=== PATIENT | male | born 1970 | race Hispanic/Latino ===

== ENCOUNTER 2018-12-20 17:52 | Observation (INO) | payer MEDICARE ==
--- NOTE | 2018-12-20 18:01 | Emergency Department Report ---
Blank Doc - Documentation Documentation: This is a 47-year-old male that presents with chest pain and SOB. HX of HTN. Denies headache. Denies any other complaints or symptoms. This initial assessment/diagnostic orders/clinical plan/treatment(s) is/are subject to change based on patient's health status, clinical progression and re- assessment by fellow clinical providers in the ED. Further treatment and workup at subsequent clinical providers discretion. Patient/guardians urged not to elope from the ED as their condition may be serious if not clinically assessed and managed. Initial orders include: 1- Patient sent to MAIN ED for further evaluation and treatment 2- labs 3- CXR 4- EKG
[2018-12-20 18:18] LABS: Basophils # (Auto) 0.1 K/mm3 (0.0-0.1); Basophils % (Auto) 0.7 % (0.0-1.8); Eosinophils # (Auto) 0.1 K/mm3 (0.0-0.4); Eosinophils % (Auto) 1.6 % (0.0-4.3); Lymphocytes # (Auto) 1.5 K/mm3 (1.2-5.4); Lymphocytes % (Auto) 16.3 % (13.4-35.0); Mean Corpuscular HGB Conc 36 % (32-34); Mean Corpuscular Volume 80 fl (84-94); Monocytes # (Auto) 0.6 K/mm3 (0.0-0.8); Monocytes % (Auto) 6.9 % (0.0-7.3); Platelet Count 464 K/mm3 (140-440); Red Blood Count 5.26 M/mm3 (3.65-5.03); Red Cell Distribution Width 15.2 % (13.2-15.2)
[2018-12-20] MEDS ORDERED: ASPIRIN PO ONE (18:30)
[2018-12-20 18:34] LABS: Hemoglobin 15.2 gm/dl (11.8-15.2)
[2018-12-20 18:35] LABS: Hematocrit 42.3 % (35.5-45.6)
[2018-12-20 18:36] LABS: Partial Thromboplastin Time 29.4 Sec. (24.2-36.6)
[2018-12-20 18:44] LABS: BUN/Creatinine Ratio 11; Blood Urea Nitrogen 10 mg/dL (9-20); Hemolysis Index 27
[2018-12-20] MEDS: NITROSTAT SL PRN ×2 (18:50→19:34)
--- NOTE | 2018-12-20 19:29 | Emergency Department Report ---
ED Chest Pain HPI - General Chief Complaint: Chest Pain Stated Complaint: SOB/CHEST PAIN Time Seen by Provider: 12/20/18 17:59 Source: patient Mode of arrival: Ambulatory Limitations: No Limitations - History of Present Illness Initial Comments: 47-year-old male presents to ED with chest pain radiating down into the left arm for the last 4 hours. Onset of chest pain at rest. Associated shortness of breath. Denies nausea or diaphoresis. Patient states pain is sharp and has a pleuritic component as well. Noncompliant with BP meds. PCP: none MD Complaint: chest pain -: hour(s) (4) Onset: during rest Pain Location: left chest Pain Radiation: back Severity scale (0 -10): 6 Quality: sharp Consistency: constant Improves With: nothing Worsens With: nothing re: dyspnea. denies: nausea, vomting, diaphoresis Treatments Prior to Arrival: none - Related Data Home Medications Medication Instructions Recorded Confirmed Last Taken Insulin Detemir [Levemir VIAL] 24 units SUB-Q QHS 01/31/18 01/31/18 Unknown Previous Rx's Medication Instructions Recorded Last Taken Type Amoxicillin/K Clav Tab [Augmentin 1 each PO Q12HR #22 tablet 02/03/18 Unknown Rx 875MG TAB] Atorvastatin Calcium [Lipitor] 40 mg PO QPM #30 tablet 02/03/18 Unknown Rx DOXYCYCLINE Hyclate [Vibramycin 100 mg PO BID #22 capsule 02/03/18 Unknown Rx CAP] Insulin Glargine [Lantus VIAL] 30 units SUB-Q QHS 30 Days units 02/03/18 Unknown Rx Insulin Regular, Human [HumuLIN R] 12 units SUB-Q AC 30 Days units 02/03/18 Unknown Rx Losartan [Cozaar] 100 mg PO QDAY #30 tablet 02/03/18 Unknown Rx amLODIPine [Norvasc] 10 mg PO QDAY #30 tablet 02/03/18 Unknown Rx oxyCODONE /ACETAMINOPHEN [Percocet 2 tab PO Q6H PRN #10 tablet 02/03/18 Unknown Rx 5/325 mg] Allergies Allergy/AdvReac Type Severity Reaction Status Date / Time tea Allergy Swelling Uncoded 02/02/18 14:20 Heart Score - HEART Score History: Slightly suspicious EKG: Non-specific Age: 45-65 Risk factors: 1-2 risk factors Troponin: < normal limit HEART Score: 3 ED Review of Systems ROS: Stated complaint: SOB/CHEST PAIN Other details as noted in HPI Comment: All other systems reviewed and negative Respiratory: shortness of breath Cardiovascular: chest pain Gastrointestinal: denies: nausea, vomiting ED Past Medical Hx - Past Medical History Previous Medical History?: Yes Hx Hypertension: Yes Hx CVA: Yes Hx Diabetes: Yes (since 2006) - Surgical History Past Surgical History?: Yes Additional Surgical History: 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 - Social History Smoking Status: Never Smoker Substance Use Type: None - Medications Home Medications: Home Medications Medication Instructions Recorded Confirmed Last Taken Type Insulin Detemir [Levemir VIAL] 24 units SUB-Q QHS 18 01/31/18 Unknown History Amoxicillin/K Clav Tab [Augmentin 1 each PO Q12HR #22 tablet 02/03/18 Unknown Rx 875MG TAB] Atorvastatin Calcium [Lipitor] 40 mg PO QPM #30 tablet 02/03/18 Unknown Rx DOXYCYCLINE Hyclate [Vibramycin 100 mg PO BID #22 capsule 02/03/18 Unknown Rx CAP] Insulin Glargine [Lantus VIAL] 30 units SUB-Q QHS 30 Days units 02/03/18 Unknown Rx Insulin Regular, Human [HumuLIN R] 12 units SUB-Q AC 30 Days units 02/03/18 Unknown Rx Losartan [Cozaar] 100 mg PO QDAY #30 tablet 02/03/18 Unknown Rx amLODIPine [Norvasc] 10 mg PO QDAY #30 tablet 02/03/18 Unknown Rx oxyCODONE /ACETAMINOPHEN [Percocet 2 tab PO Q6H PRN #10 tablet 02/03/18 Unknown Rx 5/325 mg] ED Physical Exam - General Limitations: No Limitations General appearance: alert, in no apparent distress - Head Head exam: Present: atraumatic, normocephalic - Eye Eye exam: Present: normal appearance - ENT ENT exam: Present: mucous membranes moist - Neck Neck exam: Present: normal inspection - Respiratory Respiratory exam: Present: normal lung sounds bilaterally. Absent: respiratory distress - Cardiovascular Cardiovascular Exam: Present: normal rhythm, tachycardia - GI/Abdominal GI/Abdominal exam: Present: soft. Absent: distended, tenderness - Extremities Exam Extremities exam: Absent: pedal edema, calf tenderness - Neurological Exam Neurological exam: Present: alert, oriented X3, CN II-XII intact. Absent: motor sensory deficit - Psychiatric Psychiatric exam: Present: normal affect, normal mood - Skin Skin exam: Present: warm, dry, intact, normal color. Absent: rash ED Course Vital Signs 12/20/18 12/20/18 12/20/18 17:59 18:30 18:34 Temperature 97.9 F 98.1 F Pulse Rate 107 H 97 H Respiratory 18 22 Rate Blood Pressure 210/126 Blood Pressure 175/118 [Right] O2 Sat by Pulse 99 95 96 Oximetry 12/20/18 12/20/18 12/20/18 18:35 18:45 18:50 Temperature Pulse Rate 98 H 108 H Respiratory 22 18 Rate Blood Pressure 175/118 Blood Pressure [Right] O2 Sat by Pulse 96 96 Oximetry 12/20/18 12/20/18 12/20/18 19:01 19:15 19:31 Temperature Pulse Rate 100 H 106 H 102 H Respiratory 19 29 H 16 Rate Blood Pressure 153/107 153/107 164/111 Blood Pressure [Right] O2 Sat by Pulse 95 96 94 Oximetry 12/20/18 12/20/18 12/20/18 19:34 19:45 20:19 Temperature Pulse Rate 98 H 105 H 94 H Respiratory 20 22 Rate Blood Pressure 164/111 164/111 161/100 Blood Pressure [Right] O2 Sat by Pulse 96 97 Oximetry 12/20/18 12/20/18 12/20/18 20:31 20:45 21:01 Temperature Pulse Rate 97 H 98 H 96 H Respiratory 23 21 20 Rate Blood Pressure 182/104 182/104 149/94 Blood Pressure [Right] O2 Sat by Pulse 97 96 96 Oximetry 12/20/18 12/20/18 12/20/18 21:15 21:31 21:45 Temperature Pulse Rate 95 H 94 H 93 H Respiratory 20 19 19 Rate Blood Pressure 149/94 182/106 182/104 Blood Pressure [Right] O2 Sat by Pulse 97 97 97 Oximetry 12/20/18 12/20/18 12/20/18 22:01 22:15 22:31 Temperature Pulse Rate 82 94 H 106 H Respiratory 17 14 25 H Rate Blood Pressure 180/113 180/113 172/109 Blood Pressure [Right] O2 Sat by Pulse 98 97 95 Oximetry 05/15/19 05/15/19 05/15/19 22:45 22:52 23:05 Temperature Pulse Rate 100 H 97 H 108 H Respiratory 18 14 Rate Blood Pressure 174/105 174/105 149/85 Blood Pressure [Right] O2 Sat by Pulse 95 96 Oximetry 12/20/18 12/20/18 12/20/18 23:09 23:15 23:31 Temperature Pulse Rate 99 H 100 H Respiratory 16 18 21 Rate Blood Pressure 172/97 172/97 Blood Pressure [Right] O2 Sat by Pulse 95 96 Oximetry 12/20/18 12/21/18 12/21/18 23:45 00:01 00:15 Temperature Pulse Rate 102 H 99 H 106 H Respiratory 15 18 12 Rate Blood Pressure 145/102 145/102 209/114 Blood Pressure [Right] O2 Sat by Pulse 97 94 96 Oximetry 12/21/18 00:33 Temperature 97.3 F L Pulse Rate Respiratory Rate Blood Pressure 174/113 Blood Pressure [Right] O2 Sat by Pulse Oximetry ED Medical Decision Making - Lab Data Result diagrams: 12/20/18 18:02 12/20/18 18:02 - Radiology Data Radiology results: report reviewed, image reviewed - Differential Diagnosis ACS, pulm edema, PE Critical care attestation.: If time is entered above; I have spent that time in minutes in the direct care of this critically ill patient, excluding procedure time. ED Disposition Clinical Impression: Chest pain Disposition: - OP ADMIT IP TO THIS HOSP Is pt being admited?: Yes Condition: Stable
--- NOTE | 2018-12-20 20:31 | Cat Scan Report ---
PROCEDURE: CT ANGIO CHEST TECHNIQUE: Computerized tomographic angiography of the chest was performed after the IV injection of iodinated nonionic contrast including image processing. The image data was postprocessed using 2-di mensional multiplanar reformatted (MPR) and 3-dimensional (MIP and/or volume rendered) techniques. Au tomated exposure control, adjustment of mA and/or kV according to patient size, or iterative reconstr uction dose optimization techniques were utilized. CT DOSE LENGTH PRODUCT: 1021.8 mGycm HISTORY: chest pain COMPARISONS: None . FINDINGS: Heart and pericardium: Normal. Thoracic aorta: Normal. Pulmonary vasculature: Normal. Lymph nodes: No enlarged thoracic lymph nodes. Lungs: Normal. Pleural space: No effusion, thickening, or pneumothorax. Musculoskeletal structures: No significant abnormality. Upper abdominal structures: No significant abnormality. IMPRESSION: Normal Examination . This document is electronically signed by Hunter Colmenares MD., Dec 20 2018 08:29:49 PM ET
--- NOTE | 2018-12-20 21:20 | XRay Report ---
PROCEDURE: Chest. TECHNIQUE: Portable AP view. HISTORY: Chest pain. COMPARISONS: Chest 01/31/2018. FINDINGS: The heart and mediastinum appear normal. The lungs are clear and well expanded. There are no pleural effusions. The soft tissues and regional skeleton are unremarkable. IMPRESSION: Negative portable chest. This document is electronically signed by Isaias Masters MD., Dec 20 2018 09:18:45 PM ET
[2018-12-20] MEDS ORDERED: APRESOLINE IV PRN (22:34)
[2018-12-20] MEDS ORDERED: TYLENOL PO PRN (22:35)
[2018-12-20] MEDS ORDERED: APRESOLINE IV ONE (22:35)
[2018-12-20] MEDS ORDERED: ZOFRAN IV PRN (22:35)
[2018-12-20] MEDS ORDERED: SODIUM CHLORIDE FLUSH SYRINGE 10 ML IV PRN (22:35)
[2018-12-20] MEDS ORDERED: D50W (25GM) Syringe IV PRN (22:35)
--- NOTE | 2018-12-20 22:35 | History and Physical Report ---
History of Present Illness Date of examination: 12/20/18 History of present illness: 47-year-old man with a history of hypertension, diabetes comes emergency room with complaints of chest pain located in the left chest which he describes as dull, constant pain, intensity 5/10, no radiation, cannot identify exacerbating factor. He nitroglycerin with improvement in his pain. Denies shortness of breath, nausea, no diaphoresis or palpitation. Has a wound on his foot for over 6 months which has not healed Review of systems Constitutional: no weight loss, chills, fever Ears, eyes, nose, mouth and throat: no nasal congestion, no nasal discharge, no sinus pressure, no vision change, no red eye. Neck: No neck pain or rigidity. Cardiovascular: no palpitations, +chest pain Respiratory: no cough, shortness of breath Gastrointestinal: no hematochezia, abdominal pain Genitourinary : no frequency , no hematuria Musculoskeletal: no joint swelling or muscle ache Integumentary: no rash, no pruritis Neurological: no parathesias, no focal weakness Endocrine: no cold or heat intolerance, no polyuria or polydipsia Hematologic/Lymphatic: no easy bruising, no easy bleeding, no gland swelling Allergic/Immunologic: no urticaria, no angioedema. PAST MEDICAL HISTORY: hypertension, diabetes PAST SURGICAL HISTORY: Transmetatarsal on the left foot, second toe amputated on the right foot SOCIAL HISTORY: Denies alcohol, drugs, tobacco FAMILY HISTORY: Hypertension Medications and Allergies Allergies Allergy/AdvReac Type Severity Reaction Status Date / Time tea Allergy Swelling Uncoded 02/02/18 14:20 Home Medications Medication Instructions Recorded Confirmed Last Taken Type Insulin Detemir [Levemir VIAL] 24 units SUB-Q QHS 01/31/18 01/31/18 Unknown History Amoxicillin/K Clav Tab [Augmentin 1 each PO Q12HR #22 tablet 02/03/18 Unknown Rx 875MG TAB] Atorvastatin Calcium [Lipitor] 40 mg PO QPM #30 tablet 02/03/18 Unknown Rx DOXYCYCLINE Hyclate [Vibramycin 100 mg PO BID #22 capsule 02/03/18 Unknown Rx CAP] Insulin Glargine [Lantus VIAL] 30 units SUB-Q QHS 30 Days units 02/03/18 Unknown Rx Insulin Regular, Human [HumuLIN R] 12 units SUB-Q AC 30 Days units 02/03/18 Unknown Rx Losartan [Cozaar] 100 mg PO QDAY #30 tablet 02/03/18 Unknown Rx amLODIPine [Norvasc] 10 mg PO QDAY #30 tablet 02/03/18 Unknown Rx oxyCODONE /ACETAMINOPHEN [Percocet 2 tab PO Q6H PRN #10 tablet 02/03/18 Unknown Rx 5/325 mg] Active Meds: Active Medications Hydralazine HCl (Apresoline) 5 mg IV Q6H PRN PRN Reason: Hypertension Hydralazine HCl (Apresoline) 10 mg IV ONCE ONE Stop: 12/20/18 22:36 Nitroglycerin (Nitrostat) 0.4 mg SL .Q5MIN PRN PRN Reason: Chest Pain Last Admin: 12/20/18 19:34 Dose: 0.4 mg Documented by: Exam - Physical Exam Narrative exam: General Apperance: The patient lying in bed, breathing comfortable HEENT: Normocephalic, atraumatic. Pupils equally round and reactive to light, EOMI, no sclericterus or JVD or thyromegaly or nodule. , no carotid bruit, mucous membranes moist, no exudate or erythema Heart: S1-S2, regular is rhythm Lungs: Clear to auscultation bilaterally, breathing comfortable Abdomen: Positive bowel sounds, soft, nontender, nondistended, no organomegaly Extremities: No edema cyanosis clubbing Skin: no rash, nodule, warm and dry Neuro: cranial nerves 2-12 intact, speech is fluent, motor/sensory intact - Constitutional Vitals: Temp Pulse Resp BP Pulse Ox 98.1 F 98 H 22 164/111 96 12/20/18 18:34 12/20/18 19:34 12/20/18 18:35 12/20/18 19:34 12/20/18 18:35 Results - Labs CBC & Chem 7: 12/20/18 18:02 12/20/18 18:02 Labs: Abnormal lab results 12/20/18 12/20/18 Range/Units 18:02 18:02 RBC 5.26 H (3.65-5.03) M/mm3 MCV 80 L (84-94) fl MCHC 36 H (32-34) % Plt Count 464 H (140-440) K/mm3 Seg Neutrophils % 74.5 H (40.0-70.0) % Sodium 135 L (137-145) mmol/L Chloride 93.4 L (98-107) mmol/L Glucose 341 H (75-100) mg/dL - Imaging and Cardiology EKG: image reviewed CT scan - chest: report reviewed Assessment and Plan Assessment Chest pain Hypertension, controlled Diabetes, uncontrolled Chronic left foot ulcer Plan Admit to medicine Cardiac enzymes, stress test Consult qound care Check fingersticks and initiate insulin sliding scale IV hydralazine, first dose now DVT prophylaxis
[2018-12-20] MEDS: MORPHINE IV PRN (23:09)
[2018-12-20 23:48] LABS: Creatine Kinase MB 2.5 ng/mL (0.0-4.0)
[2018-12-21] MEDS ORDERED: NORVASC PO ONE (02:36)
[2018-12-21] MEDS: MORPHINE IV PRN ×3 (03:00→13:13)
[2018-12-21] MEDS: HumaLOG SUB-Q SCH ×2 (08:52→13:13)
[2018-12-21 08:55] LABS: Basophils # (Auto) 0.1 K/mm3 (0.0-0.1); Basophils % (Auto) 0.9 % (0.0-1.8); Eosinophils # (Auto) 0.2 K/mm3 (0.0-0.4); Eosinophils % (Auto) 2.5 % (0.0-4.3); Hematocrit 41.9 % (35.5-45.6); Hemoglobin 14.1 gm/dl (11.8-15.2); Lymphocytes # (Auto) 1.4 K/mm3 (1.2-5.4); Lymphocytes % (Auto) 21.2 % (13.4-35.0); Mean Corpuscular HGB Conc 34 % (32-34); Mean Corpuscular Volume 80 fl (84-94); Monocytes # (Auto) 0.6 K/mm3 (0.0-0.8); Monocytes % (Auto) 9.2 % (0.0-7.3); Platelet Count 416 K/mm3 (140-440); Red Blood Count 5.23 M/mm3 (3.65-5.03); Red Cell Distribution Width 15.1 % (13.2-15.2)
[2018-12-21 09:10] LABS: Creatine Kinase MB 2.7 ng/mL (0.0-4.0)
[2018-12-21 09:18] LABS: BUN/Creatinine Ratio 13; Blood Urea Nitrogen 10 mg/dL (9-20); Calcium 8.7 mg/dL (8.4-10.2); Hemolysis Index 3
[2018-12-21] MEDS ORDERED: LEXISCAN IV ONE (09:36)
[2018-12-21] MEDS ORDERED: SODIUM CHLORIDE FLUSH SYRINGE 10 ML IV SCH (10:00)
[2018-12-21] MEDS ORDERED: LOVENOX SUB-Q SCH ×2 (10:00)
--- NOTE | 2018-12-21 11:10 | Discharge Summary ---
Providers - Providers Date of Admission: 12/20/18 22:35 Date of discharge: 12/21/18 Attending physician: INEZ ERWIN 12/20/18 23:27 Consult to Wound/ET Nurse [CONS] Routine Reason For Exam: wound eval Hospitalization Reason for admission: cp Condition: Stable Hospital course: 47-year-old man with a history of hypertension, diabetes presented to the emergency room with complaints of chest pain located in the left chest which he describes as dull, constant pain, intensity 5/10, no radiation, cannot identify exacerbating factor. He Denied shortness of breath, nausea, no diaphoresis or palpitation. The patient was admitted with diagnosis of accelerated hypertension chest pain and underwent chest pain protocol. Cardiac isoenzymes were found to be negative. Patient underwent stress test and found to be negative will be discharged home. Etiology of chest pain is GERD. The patient's blood pressure was controlled on his home medications. Dedicated discharge time 32 minutes. Disposition: TO HOME OR SELFCARE Time spent for discharge: 32 min Core Measure Documentation - Palliative Care Palliative Care/ Comfort Measures: Not Applicable - Core Measures Any of the following diagnoses?: none Exam - Constitutional Vitals: Temp Pulse Resp BP Pulse Ox 98.1 F 101 H 18 136/87 94 12/21/18 07:31 12/21/18 07:31 12/21/18 07:31 12/21/18 07:31 12/21/18 07:31 General appearance: Present: no acute distress, well-nourished - EENT Eyes: Present: PERRL ENT: hearing intact, clear oral mucosa - Neck Neck: Present: supple, normal ROM - Respiratory Respiratory effort: normal Respiratory: bilateral: CTA - Cardiovascular Heart Sounds: Present: S1 & S2. Absent: rub, click - Extremities Extremities: pulses symmetrical, No edema Peripheral Pulses: within normal limits - Abdominal General gastrointestinal: Present: soft, non-tender, non-distended, normal bowel sounds Male genitourinary: Present: normal - Integumentary Integumentary: Present: clear, warm, dry - Musculoskeletal Musculoskeletal: gait normal, strength equal bilaterally - Psychiatric Psychiatric: appropriate mood/affect, intact judgment & insight - Neurologic Neurologic: CNII-XII intact, moves all extremities Plan Activity: no restrictions Weight Bearing Status: Full Weight Bearing Diet: diabetic Follow up with: [facility] [Other] - 3-5 Days Prescriptions: Losartan [Cozaar] 100 mg PO QDAY #30 tablet Insulin Regular, Human [HumuLIN R] 12 units SUB-Q AC 30 Days units Insulin Glargine [Lantus VIAL] 30 units SUB-Q QHS 30 Days units Insulin Detemir [Levemir VIAL] 24 units SUB-Q QHS 30 Days vial amLODIPine [Norvasc] 10 mg PO QDAY #30 tablet oxyCODONE /ACETAMINOPHEN [Percocet 5/325 mg] 2 tab PO Q6H PRN #10 tablet PRN Reason: Pain, Moderate (4-6) DOXYCYCLINE Hyclate [Vibramycin CAP] 100 mg PO BID #22 capsule
[2018-12-21 16:52] VITALS: BP 135/88
--- NOTE | 2018-12-21 20:50 | Treadmill Report ---
THALLIUM STRESS TEST LEFT VENTRICLE: Left ventricular chamber size is within normal spread. Perfusion study demonstrates a small fixed basal inferior defect of moderate intensity, worse on the resting study. No significant reversible defects identified. Gated analysis demonstrates well preserved left ventricular systolic function, ejection fraction 53%. CONCLUSION: Small fixed basal inferior defect of moderate intensity, possibly diaphragmatic attenuation artifact. Cannot exclude a small prior basal inferior infarct. There is no reversible ischemia demonstrated on this study. Clinical correlation is recommended. JOB# [id number] CA/NTS
== END 2018-12-21 17:10 | disposition home or self-care (01) ==
LOC: ED 17:52 → 4A 22:35
PROVIDERS: ADMIT Internal Medicine; ATTEND Hospitalist
DX: R07.89 Other chest pain (principal); E11.621 Type 2 diabetes mellitus with foot ulcer; I10 Essential (primary) hypertension; Z98.890 Other specified postprocedural states; Z82.49 Family history of ischemic heart disease and other diseases of the circulatory system; Z79.4 Long term (current) use of insulin; Z79.899 Other long term (current) drug therapy; Z86.73 Personal history of transient ischemic attack (TIA), and cerebral infarction without residual deficits
CPT/HCPCS: 36415; 71045; 71275; 78452; 80048; 82550; 82553; 82962; 84484; 85025; 85610; 85730; 93005; 93010; 93017; 96372; 96374; 96375; 96376; 99284; A9502; G0378; J0360; J1650; J2270; J2785; Q9967; J1815

== ENCOUNTER 2019-03-09 07:46 | Inpatient (IN) | payer MEDICARE ==
[2019-03-09] MEDS ORDERED: ZOFRAN IV ONE (09:34)
[2019-03-09] MEDS ORDERED: SUBLIMAZE IV ONE (09:34)
[2019-03-09] MEDS ORDERED: MAXIPIME/NS 2 GM/100 ML 2 GM/100 ML BAG IV ONE (09:42)
[2019-03-09] MEDS ORDERED: VANCOMYCIN 2,000 MG in NACL 0.9% 500 ML 500 ML IV ONE (09:46)
[2019-03-09 09:47] LABS: Basophils # (Auto) 0.1 K/mm3 (0.0-0.1); Basophils % (Auto) 0.8 % (0.0-1.8); Eosinophils # (Auto) 0.2 K/mm3 (0.0-0.4); Eosinophils % (Auto) 1.7 % (0.0-4.3); Hematocrit 37.9 % (35.5-45.6); Hemoglobin 13.2 gm/dl (11.8-15.2); Lymphocytes # (Auto) 2.5 K/mm3 (1.2-5.4); Lymphocytes % (Auto) 25.4 % (13.4-35.0); Mean Corpuscular HGB Conc 35 % (32-34); Mean Corpuscular Volume 81 fl (84-94); Monocytes % (Auto) 10.6 % (0.0-7.3); Platelet Count 358 K/mm3 (140-440); Red Cell Distribution Width 15.9 % (13.2-15.2)
--- NOTE | 2019-03-09 10:02 | Emergency Department Report ---
HPI - General Chief Complaint: Extremity Problem,Nontraumatic Time Seen by Provider: 03/09/19 09:12 - HPI HPI: Room 4 The patient is a 48-year-old male presenting with a chief complaint of left lower extremity pain. The patient states for the past 2 days he's noticed left lower extremity pain, erythema and increased warmth. Patient denies any preced ing trauma. Patient denies history of fever at home. The patient gets his pain score 7-8/10. 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 - Family History Family history: no significant - Social History Smoking Status: Former Smoker (none since 1997) Substance Use Type: None (denies illicit drug use) - Medications Home Medications: Home Medications Medication Instructions Recorded Confirmed Last Taken Type Amoxicillin/K Clav Tab [Augmentin 1 each PO Q12HR #22 tablet 02/03/18 Unknown Rx 875MG TAB] Atorvastatin Calcium [Lipitor] 40 mg PO QPM #30 tablet 02/03/18 Unknown Rx DOXYCYCLINE Hyclate [Vibramycin 100 mg PO BID #22 capsule 12/21/18 Unknown Rx CAP] Insulin Detemir [Levemir VIAL] 24 units SUB-Q QHS 30 Days vial 12/21/18 Unknown Rx Insulin Glargine [Lantus VIAL] 30 units SUB-Q QHS 30 Days units 12/21/18 Unknown Rx Insulin Regular, Human [HumuLIN R] 12 units SUB-Q AC 30 Days units 12/21/18 Unknown Rx Losartan [Cozaar] 100 mg PO QDAY #30 tablet 12/21/18 Unknown Rx amLODIPine [Norvasc] 10 mg PO QDAY #30 tablet 12/21/18 Unknown Rx oxyCODONE /ACETAMINOPHEN [Percocet 2 tab PO Q6H PRN #10 tablet 12/21/18 Unknown Rx 5/325 mg] ED Review of Systems ROS: Stated complaint: L LEG PAIN Other details as noted in HPI Constitutional: denies: fever Eyes: denies: eye pain ENT: denies: throat pain Respiratory: no symptoms reported Cardiovascular: denies: chest pain Endocrine: no symptoms reported Gastrointestinal: denies: abdominal pain Genitourinary: denies: dysuria Musculoskeletal: myalgia Skin: rash, change in color Neurological: denies: headache Physical Exam - Physical Exam Vital Signs: Vital Signs 03/09/19 03/09/19 07:54 08:22 Temperature 98.4 F 98.6 F Pulse Rate 114 H 104 H Respiratory 20 17 Rate Blood Pressure 155/95 Blood Pressure 135/90 [Left] O2 Sat by Pulse 99 96 Oximetry Physical Exam: GENERAL: The patient is well-developed well-nourished male lying on stretcher using cellphone not appearing to be in acute distress. [] HEENT: Normocephalic. Atraumatic. Extraocular motions are intact. Patient has moist mucous membranes. NECK: Supple. Trachea midline CHEST/LUNGS: Clear to auscultation. There is no respiratory distress noted. HEART/CARDIOVASCULAR: Regular. There is no tachycardia. There is no gallop rub or murmur. ABDOMEN: Abdomen is soft, nontender. Patient has normal bowel sounds. There is no abdominal distention. SKIN: There is circumferential erythema and increased warmth around the left lower extremity chronic appearing ulcer to the sole of the left foot no evidence of active drainage seen. There is no diaphoresis. NEURO: The patient is awake, alert, and oriented. The patient is cooperative. The patient has normal speech MUSCULOSKELETAL: There is tenderness to palpation of the left calf ED Course Vital Signs 03/09/19 03/09/19 07:54 08:22 Temperature 98.4 F 98.6 F Pulse Rate 114 H 104 H Respiratory 20 17 Rate Blood Pressure 155/95 Blood Pressure 135/90 [Left] O2 Sat by Pulse 99 96 Oximetry ED Medical Decision Making - Lab Data Result diagrams: 03/09/19 09:28 03/09/19 09:28 Laboratory Tests 03/09/19 03/09/19 03/09/19 09:28 09:28 09:28 WBC 9.8 RBC 4.70 Hgb 13.2 Hct 37.9 MCV 81 L MCH 28 MCHC 35 H RDW 15.9 H Plt Count 358 Lymph % (Auto) 25.4 [place] % (Auto) 10.6 H Eos % (Auto) 1.7 Baso % (Auto) 0.8 Lymph # 2.5 [place] # 1.0 H Eos # 0.2 Baso # 0.1 Seg Neutrophils % 61.5 Seg Neutrophils # 6.0 ESR 56 Sodium 136 L Potassium 3.9 Chloride 97.1 L Carbon Dioxide 26 Anion Gap 17 BUN 28 H Creatinine 1.5 Estimated GFR 50 BUN/Creatinine Ratio 19 Glucose 270 H Lactic Acid 2.60 H* Calcium 9.3 C-Reactive Protein 4.60 H 03/09/19 10:20 WBC RBC Hgb Hct MCV MCH MCHC RDW Plt Count Lymph % (Auto) [place] % (Auto) Eos % (Auto) Baso % (Auto) Lymph # [place] # Eos # Baso # Seg Neutrophils % Seg Neutrophils # ESR Sodium Potassium Chloride Carbon Dioxide Anion Gap BUN Creatinine Estimated GFR BUN/Creatinine Ratio Glucose Lactic Acid 3.00 H* Calcium C-Reactive Protein - Radiology Data Radiology results: report reviewed (left lower extremity Doppler, left foot x- ray), image reviewed (left lower extremity Doppler, left foot x-ray) interpreted by me: Left foot x-ray-no acute fracture, no evidence of osteomyelitis [facility] [address] [place] [address] Vascular Lab Report Signed Patient: GIOVANA CAMPOS MR#: [id number] : 1970 Acct:[id number] Age/Sex: 48 / M ADM Date: 03/09/19 Loc: ED Attending Dr: Ordering Physician: ANIKA MORA MD Date of Service: 03/09/19 Procedure(s): VL venous duplex LE LT Accession Number(s): [id number] cc: ANIKA MORA MD DUPLEX DOPPLER LOWER EXTREMITY VEINS, LEFT INDICATION: Left lower extremity pain and redness for 3 days. TECHNIQUE: Duplex doppler imaging was performed through the veins of the left lower extremity using venous compression and other maneuvers. COMPARISON: No relevant prior imaging study available. FINDINGS: Left Common femoral vein: Negative. Left Superficial femoral vein: Negative. Left Popliteal vein: Negative. Left Calf veins: Negative. Additional findings: None.. IMPRESSION: No sonographic evidence for DVT in the left lower extremity. Signer Name: Javier Lugo Jr, MD Signed: 03/09/2019 10:16 AM Workstation Name: [id number] Transcribed By: ELIZ Dictated By: JAVIER LUGO JR, MD Electronically Authenticated By: JAVIER LUGO JR, MD Signed Date/Time: 03/09/19 1016 DD/ 1015 TD/TT: [facility] [address] [place] [address] XRay Report Signed Patient: GIOVANA CAMPOS MR#: [id number] : 1970 Acct:[id number] Age/Sex: 48 / M ADM Date: 03/09/19 Loc: ED Attending Dr: Ordering Physician: ANIKA MORA MD Date of Service: 03/09/19 Procedure(s): XR foot 3+V LT Accession Number(s): [id number] cc: ANIKA MORA MD Fluoro Time In Minutes: LEFT FOOT 3 VIEWS INDICATION / CLINICAL INFORMATION: Pain in left foot with warmth, redness and swelling. Open wound on left foot. History of diabetes. COMPARISON: None available. FINDINGS: BONES and JOINT(S): There has been prior amputation of the forefoot. No acute displaced fracture or dislocation is noted. Degenerative changes are present along the mid foot with an inferior calcaneal enthesophyte. No destructive bony changes are identified. SOFT TISSUES: There is a 2.8 cm when located along the plantar aspect of the foot near the dictation margin. Generalized edema is noted along the foot and ankle. No significant soft tissue gas is seen. ADDITIONAL FINDINGS: None. IMPRESSION: Left foot wound as above without radiographic evidence of osteomyelitis. Signer Name: Omkar Morocho MD Signed: 03/09/2019 11:01 AM Workstation Name: [id number] Transcribed By: MN Dictated By: Omkar Morocho MD Electronically Authenticated By: Omkar Morocho MD Signed Date/Time: 03/09/19 1101 DD/ 1059 TD/TT: - Differential Diagnosis cellulitis, DVT, venous insufficiency Critical care attestation.: If time is entered above; I have spent that time in minutes in the direct care of this critically ill patient, excluding procedure time. ED Disposition Clinical Impression: Left leg cellulitis, Left leg pain Disposition: OP ADMIT IP TO THIS HOSP Is pt being admited?: Yes Does the pt Need Aspirin: No Condition: Fair Referrals: JACLYN GONCALVES MD [Primary Care Provider] - 3-5 Days Time of Disposition: 11:16 (hospitalist paged (Dr Garnett))
[2019-03-09 10:06] LABS: C-Reactive Protein 4.6 mg/dL (0.00-1.30); Calcium 9.3 mg/dL (8.4-10.2)
--- NOTE | 2019-03-09 10:20 | Vascular Lab Report ---
DUPLEX DOPPLER LOWER EXTREMITY VEINS, LEFT INDICATION: Left lower extremity pain and redness for 3 days. TECHNIQUE: Duplex doppler imaging was performed through the veins of the left lower extremity using venous compression and other maneuvers. COMPARISON: No relevant prior imaging study available. FINDINGS: Left Common femoral vein: Negative. Left Superficial femoral vein: Negative. Left Popliteal vein: Negative. Left Calf veins: Negative. Additional findings: None.. IMPRESSION: No sonographic evidence for DVT in the left lower extremity. Signer Name: Javier Lugo Jr, MD Signed: 03/09/2019 10:16 AM Workstation Name: [id number]
[2019-03-09 10:36] LABS: Erythrocyte Sedimentation Rate 56 mm/Hr (0-20)
[2019-03-09] MEDS ORDERED: NACL 0.9% 1000 ML 1,000 ML IV ONE (10:52)
--- NOTE | 2019-03-09 11:05 | XRay Report ---
LEFT FOOT 3 VIEWS INDICATION / CLINICAL INFORMATION: Pain in left foot with warmth, redness and swelling. Open wound on left foot. History of diabetes. COMPARISON: None available. FINDINGS: BONES and JOINT(S): There has been prior amputation of the forefoot. No acute displaced fracture or d islocation is noted. Degenerative changes are present along the mid foot with an inferior calcaneal e nthesophyte. No destructive bony changes are identified. SOFT TISSUES: There is a 2.8 cm when located along the plantar aspect of the foot near the dictation margin. Generalized edema is noted along the foot and ankle. No significant soft tissue gas is seen. ADDITIONAL FINDINGS: None. IMPRESSION: Left foot wound as above without radiographic evidence of osteomyelitis. Signer Name: Omkar Morocho MD Signed: 03/09/2019 11:01 AM Workstation Name: [id number]
[2019-03-09] MEDS ORDERED: NACL 0.9% 1000 ML 1,000 ML ONE (12:21)
[2019-03-09] MEDS ORDERED: SODIUM CHLORIDE FLUSH SYRINGE 10 ML IV PRN ×2 (15:26→15:41)
[2019-03-09] MEDS ORDERED: PROVENTIL IH PRN (15:26)
[2019-03-09] MEDS ORDERED: TYLENOL PO PRN ×2 (15:26→15:41)
[2019-03-09] MEDS ORDERED: ZOFRAN IV PRN ×2 (15:26→15:41)
--- NOTE | 2019-03-09 15:26 | History and Physical Report ---
History of Present Illness Date of examination: 03/09/19 Date of admission: 03/09/19 11:18 Chief complaint: L lower extremity pain and redness History of present illness: 48-year-old male presenting with a chief complaint of left lower extremity pain.For the past 2 days he's noticed left lower extremity pain, erythema and increased warmth. Patient denies any preceding trauma. Patient denies history of fever at home. The patient gets his pain score 7-8/10. The patient states she's had a chronic wound to the sole of his left foot for approximately one year.Also he had TMA of L foot sec to Diabetic foot ulcer.Has perforating ulcer on the heel of Left foot anteriorly where TMA ends.2 cm x 2dht9ct depth.Erythma of Left lower extremity upto the knee. Past Medical History Previous Medical History?: Yes Hypertension CVA--no residulal weakness. 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 Family History Family history: no significant Social History Smoking Status: Former Smoker (none since 1997) Substance Use Type: None (denies illicit drug use) - Medications Home Medications: Home Medications Medication Instructions Recorded Confirmed Last Taken Type Amoxicillin/K Clav Tab [Augmentin 1 each PO Q12HR #22 tablet 02/03/18 Unknown Rx 875MG TAB] Atorvastatin Calcium [Lipitor] 40 mg PO QPM #30 tablet 02/03/18 Unknown Rx DOXYCYCLINE Hyclate [Vibramycin 100 mg PO BID #22 capsule 12/21/18 Unknown Rx CAP] Insulin Detemir [Levemir VIAL] 24 units SUB-Q QHS 30 Days vial 12/21/18 Unknown Rx Insulin Glargine [Lantus VIAL] 30 units SUB-Q QHS 30 Days units 12/21/18 Unknown Rx Insulin Regular, Human [HumuLIN R] 12 units SUB-Q AC 30 Days units 12/21/18 Unknown Rx Losartan [Cozaar] 100 mg PO QDAY #30 tablet 12/21/18 Unknown Rx amLODIPine [Norvasc] 10 mg PO QDAY #30 tablet 12/21/18 Unknown Rx oxyCODONE /ACETAMINOPHEN [Percocet 2 tab PO Q6H PRN #10 tablet 12/21/18 Unknown Rx 5/325 mg] Review of Systems ROS: Stated complaint: L LEG PAIN Other details as noted in HPI Constitutional: denies: fever Eyes: denies: eye pain ENT: denies: throat pain Respiratory: no symptoms reported Cardiovascular: denies: chest pain Endocrine: no symptoms reported Gastrointestinal: denies: abdominal pain Genitourinary: denies: dysuria Musculoskeletal: myalgia Skin: rash, change in color Neurological: denies: headache 14 point review of systems done.--otherwise negative Medications and Allergies Allergies Allergy/AdvReac Type Severity Reaction Status Date / Time tea Allergy Swelling Uncoded 02/02/18 14:20 Home Medications Medication Instructions Recorded Confirmed Last Taken Type Losartan [Cozaar] 100 mg PO QDAY #30 tablet 12/21/18 03/09/19 Unknown Rx amLODIPine [Norvasc] 10 mg PO QDAY #30 tablet 12/21/18 03/09/19 Unknown Rx Ibuprofen [Motrin Ib] 1 - 2 cap PO Q4-6H PRN 03/09/19 03/09/19 Unknown History Insulin Detemir [Levemir VIAL] 28 units SUB-Q QHS 03/09/19 03/09/19 Unknown History Insulin Regular, Human [Novolin R] 27 units SUB-Q AC 03/09/19 03/09/19 Unknown History Exam - Constitutional Vitals: Temp Pulse Resp BP Pulse Ox 98.7 F 96 H 20 127/84 95 03/09/19 13:24 03/09/19 13:24 03/09/19 13:24 03/09/19 13:24 03/09/19 13:24 General appearance: Present: no acute distress, well-nourished - EENT Eyes: Present: PERRL ENT: hearing intact, clear oral mucosa - Neck Neck: Present: supple, normal ROM - Respiratory Respiratory effort: normal Respiratory: bilateral: CTA - Cardiovascular Heart rate: 78 Rhythm: regular Heart Sounds: Present: S1 & S2. Absent: rub, click - Extremities Extremities: no ischemia, pulses intact, pulses symmetrical, No edema, abnormal (L foot perforating ulcer anteriorly ) Extremity abnormal: erythema (Erythema of Left LE from ankle to knee -ci rcumferential) Peripheral Pulses: within normal limits - Abdominal General gastrointestinal: Present: soft, non-tender, non-distended, normal bowel sounds Male genitourinary: Present: normal - Integumentary Integumentary: Present: clear, warm, dry - Musculoskeletal Musculoskeletal: gait normal, strength equal bilaterally - Psychiatric Psychiatric: appropriate mood/affect, intact judgment & insight - Neurologic Neurologic: CNII-XII intact, moves all extremities Results - Labs CBC & Chem 7: 03/10/19 05:31 03/10/19 05:31 Labs: Laboratory Last Values WBC 9.8 K/mm3 (4.5-11.0) 03/09/19 09:28 RBC 4.70 M/mm3 (3.65-5.03) 03/09/19 09:28 Hgb 13.2 gm/dl (11.8-15.2) 03/09/19 09:28 Hct 37.9 % (35.5-45.6) 03/09/19 09: MCV 81 fl (84-94) L 03/09/19 09:28 MCH 28 pg (28-32) 03/09/19 09: MCHC 35 % (32-34) H 03/09/19 09:28 RDW 15.9 % (13.2-15.2) H 03/09/19 09:28 Plt Count 358 K/mm3 (140-440) 03/09/19 09:28 Lymph % (Auto) 25.4 % (13.4-35.0) 03/09/19 09:28 [place] % (Auto) 10.6 % (0.0-7.3) H 03/09/19 09:28 Eos % (Auto) 1.7 % (0.0-4.3) 03/09/19 09:28 Baso % (Auto) 0.8 % (0.0-1.8) 03/09/19 09:28 Lymph # 2.5 K/mm3 (1.2-5.4) 03/09/19 09:28 [place] # 1.0 K/mm3 (0.0-0.8) H 03/09/19 09:28 Eos # 0.2 K/mm3 (0.0-0.4) 03/09/19 09:28 Baso # 0.1 K/mm3 (0.0-0.1) 03/09/19 09:28 Seg Neutrophils % 61.5 % (40.0-70.0) 03/09/19 09:28 Seg Neutrophils # 6.0 K/mm3 (1.8-7.7) 03/09/19 09:28 ESR 56 mm/Hr (0-20) 03/09/19 09:28 Sodium 136 mmol/L (137-145) L 03/09/19 09:28 Potassium 3.9 mmol/L (3.6-5.0) 03/09/19 09:28 Chloride 97.1 mmol/L (98-107) L 03/09/19 09:28 Carbon Dioxide 26 mmol/L (22-30) 03/09/19 09:28 17 mmol/L 03/09/19 09:28 BUN 28 mg/dL (9-20) H 03/09/19 09:28 1.5 mg/dL (0.8-1.5) 03/09/19 09:28 Estimated GFR 50 ml/min 03/09/19 09:28 19 % 03/09/19 09:28 Glucose 270 mg/dL (75-100) H 03/09/19 09:28 Lactic Acid 1.10 mmol/L (0.7-2.0) 03/09/19 13:20 Calcium 9.3 mg/dL (8.4-10.2) 03/09/19 09:28 4.60 mg/dL (0.00-1.30) H 03/09/19 09:28 - Imaging and Cardiology EKG: report reviewed Imaging and Cardiology: L foot xray SOFT TISSUES: There is a 2.8 cm ulcer located along the plantar aspect of the foot near the TMA margin. Generalized edema is noted along the foot and ankle. No significant soft tissue gas is seen. ADDITIONAL FINDINGS: None. IMPRESSION: Left foot wound as above Duplex scan LLE --negative for DVT Assessment and Plan Advance Directives: Yes (FC) VTE prophylaxis?: Chemical Plan of care discussed with patient/family: Yes - Patient Problems (1) SIRS (systemic inflammatory response syndrome) Current Visit: No Status: Acute Plan to address problem: Secondary to Cellulitis of LLE IV abx for now (2) Left leg cellulitis Current Visit: Yes Status: Acute Plan to address problem: IV Unasyn and IV Vancomycin (3) Diabetic foot ulcer associated with type 2 diabetes mellitus Current Visit: No Status: Chronic Qualifiers: Diabetic foot ulcer location: heel Laterality: left Non-pressure ulcer stage: with fat layer exposed Qualified Code(s): E11.621 - Type 2 diabetes mellitus with foot ulcer; L97.422 - Non-pressure chronic ulcer of left heel and midfoot with fat layer exposed Plan to address problem: Perforating ulcer 2.8 cmx 2 cm with 1 cm depth Wound care and surgical consult initiated (4) IDDM (insulin dependent diabetes mellitus) Current Visit: Yes Status: Chronic Plan to address problem: Cont hjome insulin and coverage Adjust dosge as neccesary Check A1c (5) HTN (hypertension) Current Visit: Yes Status: Chronic Qualifiers: Hypertension type: essential hypertension Qualified Code(s): I10 - Essential (primary) hypertension Plan to address problem: Cont antihypertensives (6) DVT prophylaxis Current Visit: Yes Status: Acute Plan to address problem: On lovenox and GI prophylaxis
[2019-03-09] MEDS ORDERED: HumuLIN R SUB-Q SCH (16:30)
[2019-03-09] MEDS: HumaLOG SUB-Q SCH ×3 (16:30→22:26)
[2019-03-09] MEDS: COZAAR PO SCH (16:55)
[2019-03-09] MEDS: NORVASC PO SCH (16:56)
[2019-03-09] MEDS: DILAUDID IV PRN (16:56)
[2019-03-09] MEDS: PERCOCET 5/325 PO PRN (20:47)
[2019-03-09] MEDS ORDERED: SODIUM CHLORIDE FLUSH SYRINGE 10 ML IV SCH (22:00)
[2019-03-09] MEDS ORDERED: INSULIN DETEMIR 50 UNIT SUB-Q SCH (22:00)
[2019-03-09] MEDS: PEPCID IV SCH (22:24)
[2019-03-09] MEDS: LANTUS SUB-Q SCH (22:25)
[2019-03-09] MEDS: SODIUM CHLORIDE FLUSH SYRINGE 10 ML IV SCH (22:26)
[2019-03-10] MEDS: PERCOCET 5/325 PO PRN ×2 (05:15→16:36)
[2019-03-10 06:01] LABS: Basophils % (Auto) 0.7 % (0.0-1.8); Eosinophils # (Auto) 0.2 K/mm3 (0.0-0.4); Eosinophils % (Auto) 2.7 % (0.0-4.3); Hematocrit 36.8 % (35.5-45.6); Hemoglobin 12.5 gm/dl (11.8-15.2); Lymphocytes # (Auto) 1.1 K/mm3 (1.2-5.4); Lymphocytes % (Auto) 17.1 % (13.4-35.0); Mean Corpuscular HGB Conc 34 % (32-34); Mean Corpuscular Volume 82 fl (84-94); Monocytes # (Auto) 0.7 K/mm3 (0.0-0.8); Monocytes % (Auto) 9.8 % (0.0-7.3); Platelet Count 315 K/mm3 (140-440); Red Cell Distribution Width 16.2 % (13.2-15.2)
[2019-03-10] MEDS ORDERED: CATHFLO IV ONE (06:21)
[2019-03-10 06:23] LABS: Alanine Aminotransferase 9 units/L (7-56); Albumin 2.9 g/dL (3.9-5); BUN/Creatinine Ratio 17; Blood Urea Nitrogen 19 mg/dL (9-20); Calcium 8.8 mg/dL (8.4-10.2); Hemolysis Index 0
[2019-03-10] MEDS ORDERED: VANCOMYCIN PHARMACY TO DOSE IV SCH (07:00)
[2019-03-10] MEDS: UNASYN/NS 3 GM/100 ML 3 GM/100 ML BAG IV SCH ×3 (07:09→22:18)
[2019-03-10] MEDS: VANCOMYCIN 2,000 MG in NACL 0.9% 500 ML 500 ML IV SCH ×2 (08:13→20:33)
[2019-03-10] MEDS: DILAUDID IV PRN ×2 (08:45→22:21)
[2019-03-10] MEDS: HumaLOG SUB-Q SCH ×7 (08:45→22:20)
[2019-03-10] MEDS: PEPCID IV SCH ×2 (09:06→22:19)
[2019-03-10] MEDS: COZAAR PO SCH (09:06)
[2019-03-10] MEDS: SODIUM CHLORIDE FLUSH SYRINGE 10 ML IV SCH ×2 (09:06→22:17)
[2019-03-10] MEDS: NORVASC PO SCH (09:06)
[2019-03-10] MEDS ORDERED: PNEUMOVAX 23 IM ONE (12:00)
--- NOTE | 2019-03-10 12:03 | Progress Note ---
Assessment and Plan Assessment and plan: --SIRS (systemic inflammatory response syndrome) Current Visit: No Status: Acute Plan to address problem: Secondary to Cellulitis of LLE IV abx , wound care and cultures --Left leg cellulitis Current Visit: Yes Status: Acute Plan to address problem: IV Unasyn and IV Vancomycin -- Diabetic foot ulcer ; Current Visit: No Status: Chronic Plan to address problem: Non-pressure chronic ulcer of left heel and midfoot with fat layer exposed Perforating ulcer 2.8 cmx 2 cm with 1 cm depth Wound care, antibiotic, elevate the limb and, follow cultures and surgical consult initiated Negative DVT, no osteomyelitis -- IDDM (insulin dependent diabetes mellitus) Current Visit: Yes Status: Chronic Plan to address problem: Patch takes sliding-scale coverage and ADA diet Long-acting insulin , Adjust dosge as neccesary A1c 8.5, diabetic education and nutrition consult if needed -- HTN (hypertension) Current Visit: Yes Status: Chronic Plan to address problem: Cont Losartan and amlodipine and PRN meds --Severe protein calorie malnutrition: Hyperalbuminemia nutrition supplements, supportive care, nutrition consult -- DVT prophylaxis Current Visit: Yes Status: Acute Plan to address problem: On lovenox and GI prophylaxis Monitor closely and adjust management as needed Plan of care to the patient and his nurse History Interval history: Patient examined medical records reviewed Patient feels slightly better new complaints Admitted with left foot nonhealing wound Alert awake oriented 3 Vital signs as reviewed Hospitalist Physical - Constitutional Vitals: Temp Pulse Resp BP Pulse Ox 98.2 F 77 20 111/57 98 03/10/19 05:15 03/10/19 09:06 03/10/19 08:45 03/10/19 05:15 03/10/19 05:15 General appearance: Present: no acute distress, well-nourished - EENT Eyes: Present: PERRL, EOM intact - Neck Neck: Present: supple, normal ROM - Respiratory Respiratory effort: normal Respiratory: bilateral: diminished, negative: rales, rhonchi, wheezing - Cardiovascular Rhythm: regular Heart Sounds: Present: S1 & S2 - Extremities Extremities: no ischemia, No edema Peripheral Pulses: within normal limits - Abdominal General gastrointestinal: soft, non-tender, non-distended, normal bowel sounds - Integumentary Integumentary: Present: clear, warm - Psychiatric Psychiatric: appropriate mood/affect, cooperative - Neurologic Neurologic: CNII-XII intact, moves all extremities Results - Labs CBC & Chem 7: 03/10/19 05:31 03/10/19 05:31 Labs: Laboratory Last Values WBC 6.7 K/mm3 (4.5-11.0) 03/10/19 05:31 RBC 4.50 M/mm3 (3.65-5.03) 03/10/19 05:31 Hgb 12.5 gm/dl (11.8-15.2) 03/10/19 05:31 Hct 36.8 % (35.5-45.6) 03/10/19 05:31 MCV 82 fl (84-94) L 03/10/19 05:31 MCH 28 pg (28-32) 03/10/19 05:31 MCHC 34 % (32-34) 03/10/19 05:31 RDW 16.2 % (13.2-15.2) H 03/10/19 05:31 Plt Count 315 K/mm3 (140-440) 03/10/19 05:31 Lymph % (Auto) 17.1 % (13.4-35.0) 03/10/19 05:31 [place] % (Auto) 9.8 % (0.0-7.3) H 03/10/19 05:31 Eos % (Auto) 2.7 % (0.0-4.3) 03/10/19 05:31 Baso % (Auto) 0.7 % (0.0-1.8) 03/10/19 05:31 Lymph # 1.1 K/mm3 (1.2-5.4) L 03/10/19 05:31 [place] # 0.7 K/mm3 (0.0-0.8) 03/10/19 05:31 Eos # 0.2 K/mm3 (0.0-0.4) 03/10/19 05:31 Baso # 0.0 K/mm3 (0.0-0.1) 03/10/19 05:31 Seg Neutrophils % 69.7 % (40.0-70.0) 03/10/19 05:31 Seg Neutrophils # 4.7 K/mm3 (1.8-7.7) 03/10/19 05:31 ESR 56 mm/Hr (0-20) 03/09/19 09:28 Sodium 139 mmol/L (137-145) 03/10/19 05:31 Potassium 4.1 mmol/L (3.6-5.0) 03/10/19 05:31 Chloride 101.7 mmol/L (98-107) 03/10/19 05:31 Carbon Dioxide 29 mmol/L (22-30) 03/10/19 05:31 12 mmol/L 03/10/19 05:31 BUN 19 mg/dL (9-20) 03/10/19 05:31 1.1 mg/dL (0.8-1.5) 03/10/19 05:31 Estimated GFR > 60 ml/min 03/10/19 05:31 17 % 03/10/19 05:31 Glucose 256 mg/dL (75-100) H 03/10/19 05:31 POC Glucose 223 (70-105) H 03/10/19 07:59 8.5 % (4-6) H 03/09/19 09:28 Lactic Acid 1.10 mmol/L (0.7-2.0) 03/09/19 13:20 Calcium 8.8 mg/dL (8.4-10.2) 03/10/19 05:31 0.40 mg/dL (0.1-1.2) 03/10/19 05:31 AST 8 units/L (5-40) 03/10/19 05:31 ALT 9 units/L (7-56) 03/10/19 05:31 80 units/L (35-129) 03/10/19 05:31 4.60 mg/dL (0.00-1.30) H 03/09/19 09:28 6.8 g/dL (6.3-8.2) 03/10/19 05:31 2.9 g/dL (3.9-5) L 03/10/19 05:31 0.7 % 03/10/19 05:31 Active Medications - Current Medications Current Medications: Generic Name Dose Route Start Last Admin Trade Name Freq PRN Reason Stop Dose Admin Acetaminophen 650 mg 03/09/19 15:41 Tylenol PO Q4H PRN Pain MILD(1-3)/Fever >100.5/CORTEZ Albuterol 2.5 mg 03/09/19 15:26 Proventil IH Q4HRT PRN Shortness Of Breath Amlodipine Besylate 10 mg 03/09/19 16:00 03/10/19 09:06 Norvasc PO 10 mg QDAY MILLY Administration Enoxaparin Sodium 40 mg 03/10/19 22:00 Lovenox SUB-Q QDAY@2200 MILLY Famotidine 20 mg 03/09/19 22:00 03/10/19 09:06 Pepcid IV 20 mg BID MILLY Administration Hydromorphone HCl 1 mg 03/09/19 15:26 03/10/19 08:45 Dilaudid IV 1 mg Q3H PRN Administration Pain , Severe (7-10) Ampicillin Sodium/Sulbactam Sodium 3 gm in 100 mls @ 100 mls/hr 03/10/19 07:00 03/10/19 07:09 Unasyn/Ns 3 Gm/100 Ml IV 100 mls/hr Q8HR MILLY Administration Protocol Vancomycin HCl 2,000 mg/ 540 mls @ 250 mls/hr 03/10/19 08:00 03/10/19 08:13 Sodium Chloride IV 250 mls/hr Q12H MILLY Administration Insulin Glargine 50 units 03/09/19 22:00 03/09/19 22:25 Lantus SUB-Q 50 units QHS MILLY Administration Insulin Human Lispro 15 unit 03/09/19 16:30 03/10/19 09:07 Humalog SUB-Q 15 unit AC MILLY Administration Insulin Human Lispro 0 unit 03/09/19 16:30 03/10/19 08:45 Humalog SUB-Q 2 unit ACHS MILLY Administration Protocol Losartan Potassium 100 mg 03/09/19 16:00 03/10/19 09:06 Cozaar PO 100 mg QDAY MILLY Administration Ondansetron HCl 4 mg 03/09/19 15:26 Zofran IV Q8H PRN Nausea And Vomiting Oxycodone/Acetaminophen 1 tab 03/09/19 15:26 03/10/19 05:15 Percocet 5/325 PO 1 tab Q6H PRN Administration Pain, Moderate (4-6) Sodium Chloride 10 ml 03/09/19 22:00 03/10/19 09:06 Sodium Chloride Flush Syringe 10 Ml IV 10 ml BID MILLY Administration Sodium Chloride 10 ml 03/09/19 15:41 Sodium Chloride Flush Syringe 10 Ml IV PRN PRN LINE FLUSH
[2019-03-10] MEDS: LOVENOX SUB-Q SCH (22:18)
[2019-03-10] MEDS: LANTUS SUB-Q SCH (22:18)
[2019-03-11] MEDS: UNASYN/NS 3 GM/100 ML 3 GM/100 ML BAG IV SCH ×3 (05:42→21:54)
[2019-03-11] MEDS: PERCOCET 5/325 PO PRN (05:54)
[2019-03-11] MEDS: HumaLOG SUB-Q SCH ×7 (08:34→21:51)
[2019-03-11] MEDS: VANCOMYCIN 2,000 MG in NACL 0.9% 500 ML 500 ML IV SCH ×2 (08:34→20:17)
[2019-03-11] MEDS: COZAAR PO SCH (09:49)
[2019-03-11] MEDS: SODIUM CHLORIDE FLUSH SYRINGE 10 ML IV SCH ×2 (09:50→21:52)
[2019-03-11] MEDS: NORVASC PO SCH (09:50)
[2019-03-11] MEDS: PEPCID IV SCH ×2 (09:50→21:50)
--- NOTE | 2019-03-11 11:19 | Progress Note ---
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 layer exposed Perforating ulcer 2.8 cmx 2 cm with 1 cm depth Wound care, antibiotic, elevate and, Cultures negative to date Negative DVT, no osteomyelitis --SIRS (systemic inflammatory response syndrome) Current Visit: No Status: Acute Plan to address problem: Secondary to Cellulitis of LLE IV abx , wound care and cultures -- IDDM (insulin dependent diabetes mellitus) Current Visit: Yes Status: Chronic Plan to address problem: Patch takes sliding-scale coverage and ADA diet Long-acting insulin , Adjust dosge as neccesary A1c 8.5, diabetic education and nutrition consult if needed -- HTN (hypertension) Current Visit: Yes Status: Chronic Plan to address problem: Cont Losartan and amlodipine and PRN meds --Severe protein calorie malnutrition: Hyperalbuminemia nutrition supplements, supportive care, nutrition consult -- DVT prophylaxis Current Visit: Yes Status: Acute Plan to address problem: On lovenox and GI prophylaxis Disposition; follow cultures, discharge on oral antibiotics Outpatient wound care. History Interval history: Patient seen and examined medical records reviewed Patient is still slightly better, receiving IV antibiotics and cultures negative to date Patient complains of generalized weakness vital signs noted Hospitalist Physical - Constitutional Vitals: Temp Pulse Resp BP Pulse Ox 98.9 F 92 H 17 125/70 94 03/11/19 05:53 03/11/19 09:50 03/11/19 06:54 03/11/19 09:49 03/11/19 05:53 General appearance: Present: no acute distress, well-nourished - EENT Eyes: Present: PERRL, EOM intact - Neck Neck: Present: supple, normal ROM - Respiratory Respiratory effort: normal Respiratory: bilateral: diminished, negative: rales, rhonchi, wheezing - Cardiovascular Rhythm: regular Heart Sounds: Present: S1 & S2 - Extremities Extremities: no ischemia, No edema, abnormal (dressing in place) - Abdominal General gastrointestinal: soft, non-tender, non-distended, normal bowel sounds - Integumentary Integumentary: Present: clear, warm - Psychiatric Psychiatric: appropriate mood/affect, cooperative - Neurologic Neurologic: moves all extremities Results - Labs CBC & Chem 7: 03/10/19 05:31 03/10/19 05:31 Labs: Laboratory Last Values WBC 6.7 K/mm3 (4.5-11.0) 03/10/19 05:31 RBC 4.50 M/mm3 (3.65-5.03) 03/10/19 05:31 Hgb 12.5 gm/dl (11.8-15.2) 03/10/19 05:31 Hct 36.8 % (35.5-45.6) 03/10/19 05:31 MCV 82 fl (84-94) L 03/10/19 05:31 MCH 28 pg (28-32) 03/10/19 05:31 MCHC 34 % (32-34) 03/10/19 05:31 RDW 16.2 % (13.2-15.2) H 03/10/19 05:31 Plt Count 315 K/mm3 (140-440) 03/10/19 05:31 Lymph % (Auto) 17.1 % (13.4-35.0) 03/10/19 05:31 [place] % (Auto) 9.8 % (0.0-7.3) H 03/10/19 05:31 Eos % (Auto) 2.7 % (0.0-4.3) 03/10/19 05:31 Baso % (Auto) 0.7 % (0.0-1.8) 03/10/19 05:31 Lymph # 1.1 K/mm3 (1.2-5.4) L 03/10/19 05:31 [place] # 0.7 K/mm3 (0.0-0.8) 03/10/19 05:31 Eos # 0.2 K/mm3 (0.0-0.4) 03/10/19 05:31 Baso # 0.0 K/mm3 (0.0-0.1) 03/10/19 05:31 Seg Neutrophils % 69.7 % (40.0-70.0) 03/10/19 05:31 Seg Neutrophils # 4.7 K/mm3 (1.8-7.7) 03/10/19 05:31 ESR 56 mm/Hr (0-20) 03/09/19 09:28 Sodium 139 mmol/L (137-145) 03/10/19 05:31 Potassium 4.1 mmol/L (3.6-5.0) 03/10/19 05:31 Chloride 101.7 mmol/L (98-107) 03/10/19 05:31 Carbon Dioxide 29 mmol/L (22-30) 03/10/19 05:31 12 mmol/L 03/10/19 05:31 BUN 19 mg/dL (9-20) 03/10/19 05:31 1.1 mg/dL (0.8-1.5) 03/10/19 05:31 Estimated GFR > 60 ml/min 03/10/19 05:31 17 % 03/10/19 05:31 Glucose 256 mg/dL (75-100) H 03/10/19 05:31 POC Glucose 152 (70-105) H 03/11/19 07:53 8.5 % (4-6) H 03/09/19 09:28 Lactic Acid 1.10 mmol/L (0.7-2.0) 03/09/19 13:20 Calcium 8.8 mg/dL (8.4-10.2) 03/10/19 05:31 0.40 mg/dL (0.1-1.2) 03/10/19 05:31 AST 8 units/L (5-40) 03/10/19 05:31 ALT 9 units/L (7-56) 03/10/19 05:31 80 units/L (35-129) 03/10/19 05:31 4.60 mg/dL (0.00-1.30) H 03/09/19 09:28 6.8 g/dL (6.3-8.2) 03/10/19 05:31 2.9 g/dL (3.9-5) L 03/10/19 05:31 0.7 % 03/10/19 05:31 Active Medications - Current Medications Current Medications: Generic Name Dose Route Start Last Admin Trade Name Freq PRN Reason Stop Dose Admin Acetaminophen 650 mg 03/09/19 15:41 Tylenol PO Q4H PRN Pain MILD(1-3)/Fever >100.5/CORTEZ Albuterol 2.5 mg 03/09/19 15:26 Proventil IH Q4HRT PRN Shortness Of Breath Amlodipine Besylate 10 mg 03/09/19 16:00 03/11/19 09:50 Norvasc PO 10 mg QDAY MILLY Administration Enoxaparin Sodium 40 mg 03/10/19 22:00 03/10/19 22:18 Lovenox SUB-Q 40 mg QDAY@2200 MILLY Administration Famotidine 20 mg 03/09/19 22:00 03/11/19 09:50 Pepcid IV 20 mg BID MILLY Administration Hydromorphone HCl 1 mg 03/09/19 15:26 03/10/19 22:21 Dilaudid IV 1 mg Q3H PRN Administration Pain , Severe (7-10) Ampicillin Sodium/Sulbactam Sodium 3 gm in 100 mls @ 100 mls/hr 03/10/19 07:00 03/11/19 05:42 Unasyn/Ns 3 Gm/100 Ml IV 100 mls/hr Q8HR MILLY Administration Protocol Vancomycin HCl 2,000 mg/ 540 mls @ 250 mls/hr 03/10/19 08:00 03/11/19 08:34 Sodium Chloride IV 250 mls/hr Q12H MILLY Administration Insulin Glargine 50 units 03/09/19 22:00 03/10/19 22:18 Lantus SUB-Q 50 units QHS MILLY Administration Insulin Human Lispro 15 unit 03/09/19 16:30 03/11/19 08:35 Humalog SUB-Q 15 unit AC MILLY Administration Insulin Human Lispro 0 unit 03/09/19 16:30 03/11/19 08:34 Humalog SUB-Q 1 unit ACHS MILLY Administration Protocol Losartan Potassium 100 mg 03/09/19 16:00 03/11/19 09:49 Cozaar PO 100 mg QDAY MILLY Administration Ondansetron HCl 4 mg 03/09/19 15:26 Zofran IV Q8H PRN Nausea And Vomiting Oxycodone/Acetaminophen 1 tab 03/09/19 15:26 03/11/19 05:54 Percocet 5/325 PO 1 tab Q6H PRN Administration Pain, Moderate (4-6) Sodium Chloride 10 ml 03/09/19 22:00 03/11/19 09:50 Sodium Chloride Flush Syringe 10 Ml IV 10 ml BID MILLY Administration Sodium Chloride 10 ml 03/09/19 15:41 Sodium Chloride Flush Syringe 10 Ml IV PRN PRN LINE FLUSH Nutrition/Malnutrition Assess - Dietary Evaluation Nutrition/Malnutrition Findings: Nutrition Notes Start: 03/10/19 14:39 Freq: Status: Active Protocol: Document 03/10/19 14:39 RM (Rec: 03/10/19 14:40 RM [id number]) Nutrition Notes 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 David 19 points. Nutrition Intervention Revisit per MD consult or patient Sign Off request:
[2019-03-11] MEDS: DILAUDID IV PRN ×2 (14:57→21:50)
[2019-03-11] MEDS: LOVENOX SUB-Q SCH (21:50)
[2019-03-11] MEDS: LANTUS SUB-Q SCH (21:51)
[2019-03-12] MEDS: PERCOCET 5/325 PO PRN (01:18)
[2019-03-12] MEDS: UNASYN/NS 3 GM/100 ML 3 GM/100 ML BAG IV SCH (05:25)
[2019-03-12] MEDS: DILAUDID IV PRN (05:38)
[2019-03-12] MEDS: HumaLOG SUB-Q SCH ×4 (07:30→13:23)
[2019-03-12] MEDS: VANCOMYCIN 2,000 MG in NACL 0.9% 500 ML 500 ML IV SCH (08:45)
[2019-03-12 08:46] VITALS: BP 126/76
[2019-03-12] MEDS: NORVASC PO SCH ×2 (08:46→10:08)
[2019-03-12] MEDS: PEPCID IV SCH (08:46)
[2019-03-12] MEDS: COZAAR PO SCH ×2 (08:46→10:07)
[2019-03-12] MEDS ORDERED: PEPCID PO SCH (10:00)
[2019-03-12] MEDS ORDERED: UNASYN/NS 3 GM/100 ML 3 GM/100 ML BAG IV SCH (12:00)
[2019-03-12] MEDS: SODIUM CHLORIDE FLUSH SYRINGE 10 ML IV SCH (13:24)
--- NOTE | 2019-03-12 14:46 | Discharge Summary ---
Providers - Providers Date of Admission: 03/09/19 11:18 Date of discharge: 03/12/19 Attending physician: MARY LOU HUA 03/09/19 15:43 Consult to Wound/ET Nurse [CONS] Routine Reason For Exam: wound eval 03/10/19 12:19 Consult to Dietitian/Nutrition [CONS] Routine Physician Instructions: Reason For Exam: Reason for Consult: Malnutrition [facility] Condition: Fair Hospital course: --Left leg cellulitis Current Visit: Yes Status: Acute Plan to address problem: IV Unasyn and IV Vancomycin elevate the limb -- Diabetic foot ulcer ; Current Visit: No Status: Chronic Plan to address problem: Non-pressure chronic ulcer of left heel and midfoot with fat layer exposed Perforating ulcer 2.8 cmx 2 cm with 1 cm depth Wound care, antibiotic, elevate and, Cultures negative to date Negative DVT, no osteomyelitis --SIRS (systemic inflammatory response syndrome) Current Visit: No Status: Acute Plan to address problem: Secondary to Cellulitis of LLE IV abx , wound care and cultures -- IDDM (insulin dependent diabetes mellitus) Current Visit: Yes Status: Chronic Plan to address problem: Patch takes sliding-scale coverage and ADA diet Long-acting insulin , Adjust dosge as neccesary A1c 8.5, diabetic education and nutrition consult if needed -- HTN (hypertension) Current Visit: Yes Status: Chronic Plan to address problem: Cont Losartan and amlodipine and PRN meds --Severe protein calorie malnutrition: Hyperalbuminemia nutrition supplements, supportive care, nutrition consult -- DVT prophylaxis Current Visit: Yes Status: Acute Plan to address problem: On lovenox and GI prophylaxis Disposition: DC/[place]-06 HOME UNDER HOME [facility] Time spent for discharge: 32 min Core Measure Documentation - Palliative Care Palliative Care/ Comfort Measures: Not Applicable - Core Measures Any of the following diagnoses?: none Exam - Constitutional Vitals: Temp Pulse Resp BP Pulse Ox 98.5 F 91 H 18 126/76 95 03/12/19 05:13 03/12/19 08:46 03/12/19 06:08 03/12/19 08:46 03/12/19 05:13 General appearance: Present: no acute distress, well-nourished - EENT Eyes: Present: PERRL, EOM intact - Neck Neck: Present: supple, normal ROM - Respiratory Respiratory effort: normal Respiratory: negative: rales, rhonchi, wheezing - Cardiovascular Rhythm: regular Heart Sounds: Present: S1 & S2 - Extremities Extremities: no ischemia, pulses intact, abnormal (chronic Lt foot u) - Abdominal General gastrointestinal: Present: soft, non-tender, non-distended, normal bowel sounds - Integumentary Integumentary: Present: clear, warm - Musculoskeletal Musculoskeletal: strength equal bilaterally - Psychiatric Psychiatric: appropriate mood/affect, cooperative - Neurologic Neurologic: CNII-XII intact, moves all extremities Plan Activity: advance as tolerated, fall precautions Diet: diabetic Wound: per wound nurse instructions Special Instructions: physical therapy Additional Instructions: Out patient wound care in 3-5 days [facility]Primary Care Provider[facility] - 3-5 Days SILVIA KAUR DO [Staff Physician] - 7 Days Prescriptions: Losartan [Cozaar] 100 mg PO QDAY #30 tablet Insulin Detemir [Levemir VIAL] 35 units SUB-Q QHS 30 Days vial Ibuprofen [Motrin Ib] 1 - 2 cap PO Q4-6H PRN #20 capsule PRN Reason: Pain, Moderate (4-6) amLODIPine [Norvasc] 10 mg PO QDAY #30 tablet Insulin Regular, Human [Novolin R] 25 units SUB-Q AC 30 Days vial oxyCODONE /ACETAMINOPHEN [Percocet 5/325 mg] 1 tab PO BID PRN #10 tablet PRN Reason: Pain, Moderate (4-6)
--- NOTE | 2019-03-12 14:50 | Discharge Summary ---
Providers - Providers Date of Admission: 03/09/19 11:18 Date of discharge: 03/12/19 Attending physician: MARY LOU HUA 03/09/19 15:43 Consult to Wound/ET Nurse [CONS] Routine Reason For Exam: wound eval 03/10/19 12:19 Consult to Dietitian/Nutrition [CONS] Routine Physician Instructions: Reason For Exam: Reason for Consult: Malnutrition Primary care physician: [facility] MD JOSE ALBERTO Hospitalization Condition: Fair Disposition: DC/[place]-06 HOME [facility] Time spent for discharge: 32 min Core Measure Documentation - Palliative Care Palliative Care/ Comfort Measures: Not Applicable - Core Measures Any of the following diagnoses?: none Exam - Constitutional Vitals: Temp Pulse Resp BP Pulse Ox 98.5 F 91 H 18 126/76 95 03/12/19 05:13 03/12/19 08:46 03/12/19 06:08 03/12/19 08:46 03/12/19 05:13 General appearance: Present: no acute distress, well-nourished Plan Follow up with: JACLYN GONCALVES MD [Primary Care Provider] - 3-5 Days
[2019-03-12] MEDS ORDERED: TYLENOL PO ONE (14:56)
== END 2019-03-12 18:00 | disposition home or self-care (01) | DRG 602 ==
LOC: ED 07:46 → 3A 11:18
PROVIDERS: ADMIT Internal Medicine; ATTEND Internal Medicine
PROC: 3E0234Z Introduction of Serum, Toxoid and Vaccine into Muscle, Percutaneous Approach (ICD-10-PCS; principal; 2019-03-10)
DX: L03.116 Cellulitis of left lower limb (principal); E43 Unspecified severe protein-calorie malnutrition; L97.422 Non-pressure chronic ulcer of left heel and midfoot with fat layer exposed; Z68.41 Body mass index [BMI] 40.0-44.9, adult; E11.621 Type 2 diabetes mellitus with foot ulcer; Z89.422 Acquired absence of other left toe(s); Z89.421 Acquired absence of other right toe(s); Z87.891 Personal history of nicotine dependence; Z86.73 Personal history of transient ischemic attack (TIA), and cerebral infarction without residual deficits; Z79.899 Other long term (current) drug therapy; Z79.84 Long term (current) use of oral hypoglycemic drugs; Z23 Encounter for immunization
CPT/HCPCS: 36415; 80048; 80053; 82140; 82962; 83036; 85025; 85652; 86140; 87040; 90732; 96365; 96375; G0378; J0295; J0692; J1170; J1650; J1815; J2405; J3010; J3370; J7030; J7040

== ENCOUNTER 2019-04-20 22:08 | Emergency (ER) | payer MEDICARE ==
[2019-04-20 22:40] VITALS: BP 176/123
--- NOTE | 2019-04-20 22:41 | Event Note ---
ED Screening Note Date of service: 04/20/19 Time: 22:37 ED Screening Note: This is a 48 y.o. M. that presents to the ER with left tibia/fibula redness and pain x 2-3 days. PMH of DM2, HLD, & HTN Denies any fever, chills, headache, nausea, vomiting, chest pain or SOB. This initial assessment/diagnostic orders/clinical plan/treatment(s) is/are subject to change based on patients health status, clinical progression and re- assessment by fellow clinical providers in the ED. Further treatment and workup at subsequent clinical providers discretion. Patient/guardian urged not to elope from the ED as their condition may be serious if not clinically assessed and managed. Initial orders include: Labs
[2019-04-20 23:00] LABS: Basophils # (Auto) 0.1 K/mm3 (0.0-0.1); Basophils % (Auto) 0.8 % (0.0-1.8); Eosinophils # (Auto) 0.2 K/mm3 (0.0-0.4); Eosinophils % (Auto) 2.3 % (0.0-4.3); Hematocrit 42.6 % (35.5-45.6); Hemoglobin 14.2 gm/dl (11.8-15.2); Lymphocytes # (Auto) 2.2 K/mm3 (1.2-5.4); Lymphocytes % (Auto) 23.4 % (13.4-35.0); Mean Corpuscular HGB Conc 33 % (32-34); Mean Corpuscular Volume 81 fl (84-94); Monocytes # (Auto) 0.7 K/mm3 (0.0-0.8); Platelet Count 356 K/mm3 (140-440); Red Blood Count 5.26 M/mm3 (3.65-5.03)
[2019-04-20 23:21] LABS: BUN/Creatinine Ratio 13; Blood Urea Nitrogen 12 mg/dL (9-20); Hemolysis Index 6
[2019-04-21] MEDS ORDERED: CLEOCIN IM ONE (01:26)
[2019-04-21] MEDS ORDERED: ZOFRAN ODT PO ONE (01:27)
[2019-04-21] MEDS ORDERED: NORCO 10/325 PO ONE (01:27)
--- NOTE | 2019-04-21 01:28 | Emergency Department Report ---
ED General Adult HPI - General Chief complaint: Wound/Laceration Stated complaint: INFECTION TO LEFT LEG Time Seen by Provider: 04/20/19 22:37 Source: patient Mode of arrival: Ambulatory Limitations: No Limitations - History of Present Illness Initial comments: The patient is to emergency department with a chief complaint of left foot infection. Patient states that he is concerned about also on the amount of his left foot and associated pain. Patient denies fever. -: unknown Location: lower extremity Severity scale (0 -10): 6 Improves with: none Worsens with: none Associated Symptoms: denies other symptoms Treatments Prior to Arrival: none - Related Data Previous Rx's Medication Instructions Recorded Last Taken Type Clindamycin [Clindamycin CAP] 300 mg PO Q6H #40 capsule 03/12/19 Unknown Rx Ibuprofen [Motrin Ib] 1 - 2 cap PO Q4-6H PRN #20 capsule 03/12/19 Unknown Rx Insulin Detemir [Levemir VIAL] 35 units SUB-Q QHS 30 Days vial 03/12/19 Unknown Rx Insulin Regular, Human [Novolin R] 25 units SUB-Q AC 30 Days vial 03/12/19 Unknown Rx Losartan [Cozaar] 100 mg PO QDAY #30 tablet 03/12/19 Unknown Rx amLODIPine [Norvasc] 10 mg PO QDAY #30 tablet 03/12/19 Unknown Rx oxyCODONE /ACETAMINOPHEN [Percocet 1 tab PO BID PRN #10 tablet 03/12/19 Unknown Rx 5/325 mg] Clindamycin [Clindamycin CAP] 150 mg PO Q8HR #56 capsule 04/21/19 Unknown Rx HYDROcodone/APAP 5-325 [[place] 1 each PO Q6HR PRN #12 tablet 04/21/19 Unknown Rx 5/325] Allergies Allergy/AdvReac Type Severity Reaction Status Date / Time tea Allergy Swelling Uncoded 02/02/18 14:20 ED Review of Systems ROS: Stated complaint: INFECTION TO LEFT LEG Other details as noted in HPI Constitutional: denies: chills, fever Eyes: denies: eye pain, eye discharge, vision change ENT: denies: ear pain, throat pain Respiratory: denies: cough, shortness of breath, wheezing Cardiovascular: denies: chest pain, palpitations Endocrine: no symptoms reported Gastrointestinal: denies: abdominal pain, nausea, diarrhea Genitourinary: denies: urgency, dysuria Musculoskeletal: denies: back pain, joint swelling, arthralgia Skin: denies: rash, lesions Neurological: denies: headache, weakness, paresthesias Psychiatric: denies: anxiety, depression Hematological/Lymphatic: denies: easy bleeding, easy bruising ED Past Medical Hx - Past Medical History Previous Medical History?: Yes Hx Hypertension: Yes Hx CVA: Yes Hx Diabetes: Yes Hx Kidney Stones: Yes - Surgical History Past Surgical History?: Yes Additional Surgical History: 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 - Social History Smoking Status: Former Smoker Substance Use Type: None - Medications Home Medications: Home Medications Medication Instructions Recorded Confirmed Last Taken Type Clindamycin [Clindamycin CAP] 300 mg PO Q6H #40 capsule 03/12/19 Unknown Rx Ibuprofen [Motrin Ib] 1 - 2 cap PO Q4-6H PRN #20 capsule 03/12/19 Unknown Rx Insulin Detemir [Levemir VIAL] 35 units SUB-Q QHS 30 Days vial 03/12/19 Unknown Rx Insulin Regular, Human [Novolin R] 25 units SUB-Q AC 30 Days vial 03/12/19 Unk nown Rx Losartan [Cozaar] 100 mg PO QDAY #30 tablet 03/12/19 Unknown Rx amLODIPine [Norvasc] 10 mg PO QDAY #30 tablet 03/12/19 Unknown Rx oxyCODONE /ACETAMINOPHEN [Percocet 1 tab PO BID PRN #10 tablet 03/12/19 Unknown Rx 5/325 mg] Clindamycin [Clindamycin CAP] 150 mg PO Q8HR #56 capsule 04/21/19 Unknown Rx HYDROcodone/APAP 5-325 [[place] 1 each PO Q6HR PRN #12 tablet 04/21/19 Unknown Rx 5/325] ED Physical Exam - General Limitations: No Limitations General appearance: alert, in no apparent distress - Head Head exam: Present: atraumatic, normocephalic - Eye Eye exam: Present: normal appearance, PERRL, EOMI - ENT ENT exam: Present: mucous membranes moist - Neck Neck exam: Present: normal inspection - Respiratory Respiratory exam: Present: normal lung sounds bilaterally. Absent: respiratory distress - Cardiovascular Cardiovascular Exam: Present: regular rate, normal rhythm. Absent: systolic murmur, diastolic murmur, rubs, gallop - GI/Abdominal GI/Abdominal exam: Present: soft, normal bowel sounds. Absent: distended, tenderness - Rectal Rectal exam: Present: deferred - Extremities Exam Extremities exam: Present: other (patient has a transmetatarsal amputation to the left foot without ulcer on the dorsum of the left foot) - Back Exam Back exam: Present: normal inspection - Neurological Exam Neurological exam: Present: alert, oriented X3, CN II-XII intact. Absent: motor sensory deficit - Psychiatric Psychiatric exam: Present: normal affect, normal mood - Skin Skin exam: Present: warm, dry, intact, normal color. Absent: rash ED Course Vital Signs 04/20/19 22:37 Temperature 98.2 F Pulse Rate 110 H Respiratory 22 Rate Blood Pressure 176/123 O2 Sat by Pulse 96 Oximetry ED Medical Decision Making - Lab Data Result diagrams: 04/20/19 22:47 04/20/19 22:47 Lab Results 04/20/19 04/20/19 Range/Units 22:47 22:47 WBC 9.4 (4.5-11.0) K/mm3 RBC 5.26 H (3.65-5.03) M/mm3 Hgb 14.2 (11.8-15.2) gm/dl Hct 42.6 (35.5-45.6) % MCV 81 L (84-94) fl MCH 27 L (28-32) pg MCHC 33 (32-34) % RDW 16.0 H (13.2-15.2) % Plt Count 356 (140-440) K/mm3 Lymph % (Auto) 23.4 (13.4-35.0) % [place] % (Auto) 8.0 H (0.0-7.3) % Eos % (Auto) 2.3 (0.0-4.3) % Baso % (Auto) 0.8 (0.0-1.8) % Lymph # 2.2 (1.2-5.4) K/mm3 [place] # 0.7 (0.0-0.8) K/mm3 Eos # 0.2 (0.0-0.4) K/mm3 Baso # 0.1 (0.0-0.1) K/mm3 Seg Neutrophils % 65.5 (40.0-70.0) % Seg Neutrophils # 6.1 (1.8-7.7) K/mm3 Sodium 136 L (137-145) mmol/L Potassium 3.9 (3.6-5.0) mmol/L Chloride 97.8 L (98-107) mmol/L Carbon Dioxide 25 (22-30) mmol/L Anion Gap 17 mmol/L BUN 12 (9-20) mg/dL Creatinine 0.9 (0.8-1.5) mg/dL Estimated GFR > 60 ml/min BUN/Creatinine Ratio 13 % Glucose 380 H (75-100) mg/dL Calcium 9.0 (8.4-10.2) mg/dL Critical care attestation.: If time is entered above; I have spent that time in minutes in the direct care of this critically ill patient, excluding procedure time. ED Disposition Clinical Impression: Ulcer of foot due to diabetes Disposition: TO HOME OR SELFCARE Is pt being admited?: No Does the pt Need Aspirin: No Condition: Stable Instructions: Diabetes Mellitus Type 2 in Adults (ED) Additional Instructions: return if worse Prescriptions: Clindamycin [Clindamycin CAP] 150 mg PO Q8HR #56 capsule HYDROcodone/APAP 5-325 [[place] 5/325] 1 each PO Q6HR PRN #12 tablet PRN Reason: Pain Referrals: PRIMARY CARE, [Primary Care Provider] - 3-5 Days JC WESLEY DPM [Staff Physician] - 3-5 Days [facility] [Outside] - 3-5 Days Time of Disposition: 01:43
== END 2019-04-21 02:08 | disposition home or self-care (01) ==
LOC: ED 22:08
DX: E11.621 Type 2 diabetes mellitus with foot ulcer (principal); L97.529 Non-pressure chronic ulcer of other part of left foot with unspecified severity; I10 Essential (primary) hypertension; Z86.73 Personal history of transient ischemic attack (TIA), and cerebral infarction without residual deficits; Z87.442 Personal history of urinary calculi; Z87.891 Personal history of nicotine dependence
CPT/HCPCS: 36415; 80048; 85025; 96372; Q0162

== ENCOUNTER 2021-09-22 12:10 | Emergency (ER) | payer MEDICARE ==
[2021-09-22 14:42] LABS: Basophils # (Auto) 0.1 K/mm3 (0.0-0.1); Basophils % (Auto) 0.6 % (0.0-1.8); Eosinophils # (Auto) 0.1 K/mm3 (0.0-0.4); Eosinophils % (Auto) 1.3 % (0.0-4.3); Hematocrit 32.7 % (35.5-45.6); Hemoglobin 10.4 gm/dl (11.8-15.2); Lymphocytes # (Auto) 1.2 K/mm3 (1.2-5.4); Lymphocytes % (Auto) 12.9 % (13.4-35.0); Mean Corpuscular HGB Conc 32 % (32-34); Mean Corpuscular Volume 75 fl (84-94); Monocytes % (Auto) 10.9 % (0.0-7.3); Platelet Count 504 K/mm3 (140-440); Red Blood Count 4.35 M/mm3 (3.65-5.03); Red Cell Distribution Width 18.4 % (13.2-15.2)
[2021-09-22 15:13] LABS: Alanine Aminotransferase 12 units/L (7-56); Albumin 3.2 g/dL (3.9-5); BUN/Creatinine Ratio 14; Blood Urea Nitrogen 20 mg/dL (9-20); Calcium 8.9 mg/dL (8.4-10.2); Hemolysis Index 0
[2021-09-22] MEDS ORDERED: MORPHINE 4 MG/1 ML INJ IV ONE (16:02)
[2021-09-22] MEDS ORDERED: ONDANSETRON 4 MG/2 ML INJ IV ONE (16:02)
[2021-09-22 20:09] VITALS: BP 148/97
== END 2021-09-22 19:40 | disposition home or self-care (01) ==
LOC: ED 12:10
DX: M62.830 Muscle spasm of back (principal); L08.9 Local infection of the skin and subcutaneous tissue, unspecified; M86.9 Osteomyelitis, unspecified; I10 Essential (primary) hypertension; E11.9 Type 2 diabetes mellitus without complications; Z89.432 Acquired absence of left foot; Z86.73 Personal history of transient ischemic attack (TIA), and cerebral infarction without residual deficits; Z89.422 Acquired absence of other left toe(s); Z89.421 Acquired absence of other right toe(s); Z91.018 Allergy to other foods
CPT/HCPCS: 36415; 71046; 71275; 73630; 80053; 82140; 82962; 83880; 84484; 85025; 93005; 93010; 96374; 96375; 99284; J2270; J2405; Q9967